=== PATIENT | male | born 1980 | race Caucasian/White ===

== ENCOUNTER 2016-08-03 21:10 | Inpatient (IN) | payer OTHER ==
[~2016-08-03] VITALS: Ht 182.9 cm; Wt 75.4 kg
[2016-08-04 00:10] VITALS: BP 138/81; PULSE 60; RESP 18; TEMP 96.8; O2SAT 99
[2016-08-04] MEDS ORDERED: MAGNESIUM HYDROXIDE SUSP 30 ML CUP PO PRN (01:00)
[2016-08-04] MEDS ORDERED: ALUMINUM/MAGNESIUM/SIMETH 30 ML CUP PO PRN (01:00)
[2016-08-04] MEDS ORDERED: ACETAMINOPHEN 325 MG TAB PO PRN (01:00)
[2016-08-04 06:26] VITALS: BP 103/57; PULSE 73; RESP 16; TEMP 97.6; O2SAT 95
--- NOTE | 2016-08-04 13:41 | HHI.HP ---
Provisional Diagnosis Admission Date Aug 03, 2016 at 21:10 [place] I. Adjustment disorder with mixed disturbance of emotions and conduct. Certification of Person's Competence To Provide Express and Informed Consent I have personally examined Noah Bragg , a person being served at [facility] on, Aug 04, 2016 13:28. Express and informed consent means consent voluntarily given in writing, by a competent person, after sufficient explanation and disclosure of the subject matter involved to enable the person to make a knowing and willful decision without any element of force, fraud, deceit, duress, or other form of constraint or coercion. This person is 18 years of age or older, is not now known to be incompetent to consent to treatment with a guardian advocate, and does not have a health care surrogate or proxy currently making medical treatment decisions. I have found this person to be one of the following: [x] Competent to provide express and informed consent, as defined above, for voluntary admission to this facility and is competent to provide express and informed consent for treatment. He/she has the consistent capacity to make well reasoned, willful, and knowing decisions concerning his or her medical or mental health treatment. The person fully and consistently understands the purpose of the admission for examination/placement and is fully capable of personally exercising all rights assured under [place] [] Incompetent to provide express and informed consent to voluntary admission, and this is incompetent to provide express and informed consent to treatment. The person must be transferred to involuntary status and a petition for a guardian advocate filed with the Circuit Court. [] Refusing to provide express and informed consent to voluntary admission but is competent to provide express and informed consent for treatment. The person must be discharged or transferred to involuntary status. Form shall be completed within 24 hours of a person's arrival at the receiving facility and filed in the clinical record of each person: 1. Admitted on a voluntary basis 2. Permitted to provide express and informed consent to his/her own treatment 3. Allowed to transfer from involuntary to voluntary status 4. Prior to permitting a person to consent to his or her own treatment after having been previously found incompetent to consent to treatment. History of Present Illness Capacity: Has Capacity HPI This is a 36-year-old male with a history of depression 3 weeks. Apparently 3 weeks ago he gave up custody of his 13-year-old and 10-year-old child to their mother, who lives in [place]. The 18-year-old child continues to live with the patient and his mother, in [facility]. Patient describes suicidal ideation and for that reason he was Choudhary acted. He reports symptoms of depressed mood, anhedonia, social withdrawal, irritability, diminished self- esteem, low energy, difficulty with motivation, wanting to sleep all the time, and suicidal thoughts. He is reportedly getting dialogue it off the street even though he states he obtained a prescription for that medicine in the recent past. Although he can pointof thick injury or reason for his pain, he believes he is dependent at this point. 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 Review of Systems ROS Limitations: Clinical Condition Except as stated in HPI: all other systems reviewed are Neg Past Psych History Psychological trauma history Denied Violence risk - others (6 mos) Minimal Violence risk - self (6 mos) Significant at this time. Substance Abuse History Drugs/Alcohol past 12 months Patient has been taking dialogue it which she buys off the street and uses up to 2 or 3 times per day. Past Family Social History Coded Allergies: No Known Allergies (Unverified , 08/04/16) Past Medical History No systemic diseases. Will be started on Cymbalta. Current Medications Medications (Trade) Dose Ordered Sig/Suzanna Route Start Time Stop Time Status Last Admin (Tylenol) 650 mg Q4H PRN PO 08/04/16 01:00 (Milk Of Magnesia Liq) 30 ml DAILY PRN PO 08/04/16 01:00 (Mag-Al Plus Susp Liq) 30 ml Q6H PRN PO 08/04/16 01:00 Family History Significant for mood disorders. Social History for several years. Lives with his mother and 18-year-old son in [place]. Performs concrete work intermittently. Currently abusing dialogue in it, which she receives off the street. He does not have a history of abuse. High school education. Patient's Strengths (min. 2) Verbal and resilient. Physical Exam GENERAL: SKIN: Warm and dry. HEAD: Normocephalic. EYES: No scleral icterus. No injection or drainage. NECK: Supple, trachea midline. No JVD or lymphadenopathy. CARDIOVASCULAR: Regular rate and rhythm without murmurs, gallops, or rubs. RESPIRATORY: Breath sounds equal bilaterally. No accessory muscle use. GASTROINTESTINAL: Abdomen soft, non-tender, nondistended. MUSCULOSKELETAL: No cyanosis, or edema. BACK: Nontender without obvious deformity. No CVA tenderness. Vital Signs Vital Signs Date Time Temp Pulse Resp B/P Pulse Ox O2 Delivery O2 Flow Rate FiO2 08/04/16 06:26 97.6 73 16 103/57 95 Mental Status Examination Speech: Unremarkable Orientation: x3 Memory: Unremarkable Thought Process: Organized, Goal Directed Thought Content: Unremarkable Hallucination Type: None Attention and Concentration: Good Suicidal Ideation: Yes Previous Suicide Attempts: No Homicidal Ideation: No Previous Homicide Attempts: No Insight: Fair Judgement: WNL, Unrealistic Affect: Anxious Affect if Inappropriate: Blunt Motor Activity: Normal gait Assessment & Plan Problem List: (1) Adjustment disorder with mixed disturbance of emotions and conduct ICD Code: F43.25 (2) Opiate abuse, continuous ICD Code: F11.10 Assessment & Plan Estimated LOS: days it is estimated the patient will be in the hospital for 3- 5 days. This physician is unable to help him with his withdrawal from dialogue but he will be monitored for significant symptoms of nausea, vomiting and diarrhea. If he begins to get dehydrated, helpless will be consult it. In the meantime he will be started on Cymbalta 20 mg per day for depression and reports of pain. He does not wish to take his past psychiatric medicines of Remeron, Seroquel and Lexapro, which she was prescribed several weeks ago in [place]. Apparently he was hospitalized several weeks ago in the [facility] with similar complaints. Request HC Surrog/Guard Advoc?: No Zay Craft MD Aug 04, 2016 13:41
[2016-08-04] MEDS ORDERED: hydrOXYzine HCL 50 MG TAB PO PRN (17:15)
[2016-08-04 19:44] VITALS: BP 120/71; PULSE 68; RESP 16; TEMP 98.1; O2SAT 100
[2016-08-05 05:53] VITALS: BP 117/63; PULSE 54; RESP 16; TEMP 98.1
[2016-08-05] MEDS: DULoxetine HCl DR 20 MG CAP PO SCH (09:50)
--- NOTE | 2016-08-05 10:29 | HHI.PYPN ---
Subjective Remarks Patient is complaining of severe depression this morning and withdrawal from alprazolam. He states he has been on alprazolam for 10 years. In an abundance of caution, this physician prescribed clonazepam 0.5 mg every 12 hours. However , due to the patient's abuse of dialogue and, this will not be provided on an outpatient basis. He is also being given Cymbalta for ongoing depressive complaints. He appears to be tolerating this medicine adequately well. Review of Systems Except as stated in HPI: all other systems reviewed are Neg Objective Alert: Yes [place]: Person, Place, Date, Situation Mood: Anxious Affect: Restricted Memory Intact: Immediate, Recent, Remote Hallucinations: Other Delusions: No Delusion Type: Other Suicidal: Ideation Homicidal: Ideation Insight/Judgement Impaired but adequate for the moment. Remarks Not actively homicidal Vitals/IOs Vital Signs Date Time Temp Pulse Resp B/P Pulse Ox O2 Delivery O2 Flow Rate FiO2 08/05/16 05:53 98.1 54 16 117/63 08/04/16 19:44 100 Assessment & Plan Problem List: (1) Adjustment disorder with mixed disturbance of emotions and conduct ICD Code: F43.25 (2) Opiate abuse, continuous ICD Code: F11.10 Assessment & Plan Estimated LOS: days patient was started on Cymbalta, low dose for depression and pain complaints as well as anxiety. This dose will be titrated upwards as long as he can tolerate the medicine. He was also started on Klonopin today to protect him from withdrawal from reported use of Xanax. He will continue to participate in individual and group therapies. It is anticipated he'll be in the hospital for one to 2 more days. Justification for Cont. Inpt. Continued suicidal threats. Request HC Surrog/Guard Advoc?: No Zay Craft MD Aug 05, 2016 10:28
[2016-08-05 21:17] VITALS: BP 115/59; PULSE 62; RESP 16; TEMP 97.9; O2SAT 99
[2016-08-05] MEDS: clonazePAM 0.5 MG TAB PO SCH (21:42)
[2016-08-06 05:48] VITALS: BP 112/63; PULSE 68; RESP 16; TEMP 97.4; O2SAT 97
[2016-08-06] MEDS: DULoxetine HCl DR 20 MG CAP PO SCH (08:37)
[2016-08-06] MEDS: clonazePAM 0.5 MG TAB PO SCH (08:37)
[2016-08-06] MEDS ORDERED: CLON.5 PO (11:56)
[2016-08-06] MEDS ORDERED: DULO20 PO (11:56)
--- NOTE | 2016-08-06 12:01 | HHI.DS ---
Psychiatry Discharge Summary Inpatient Psychiatric care?: Yes Advance Directive: Yes Mental Health AdvanceDirective: Yes (patient declined at this time) Name and Number: patient declined at this time Health Care Proxy: No (patient declined at this time) Name and Phone Number: patient declined at this time Admission Admission Date Aug 03, 2016 at 21:10 Admission Diagnosis: (1) Adjustment disorder with mixed disturbance of emotions and conduct ICD Code: F43.25 Brief History This is a 36-year-old male with a history of depression 3 weeks. Apparently 3 weeks ago he gave up custody of his 13-year-old and 10-year-old child to their mother, who lives in [place]. The 18-year-old child continues to live with the patient and his mother, in [facility]. Patient describes suicidal ideation and for that reason he was Choudhary acted. He reports symptoms of depressed mood, anhedonia, social withdrawal, irritability, diminished self- esteem, low energy, difficulty with motivation, wanting to sleep all the time, and suicidal thoughts. He is reportedly getting dialogue it off the street even though he states he obtained a prescription for that medicine in the recent past. Although he can pointof thick injury or reason for his pain, he believes he is dependent at this point. 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 Tobacco Use In Past 30 Days: 5 or More Cigarettes/Day Alcohol Use: Never Hospital Course The patient participated actively in individual as well as group therapies. He was started on Cymbalta for depression and clonazepam to prevent withdrawal from 10 years of taking Xanax. No major procedures were performed. At the time of discharge his mood was significantly improved and he was no longer suicidal but rather hopeful. He well follow up with his personal physician and was given a one-month supply of Cymbalta and clonazepam with no refills. Results Blood Pressure 112 / 63 Vital Signs Date Time Temp Pulse Resp B/P Pulse Ox O2 Delivery O2 Flow Rate FiO2 08/06/16 05:48 97.4 68 16 112/63 97 0 Summary of Procedures 0 Pending results at discharge: No Medications # of Antipsychotic meds at D/C: 0 Approp Antipsych med options 1 - Minimum of three failed multiple trials of monotherapy. 2 - Documented plan to taper to monotherapy due to previous use of multiple meds OR cross-taper in progress at D/C. 3 - Documentation of augmentation of Clozapine. 4 - Justification other than those listed in allowable values 1-3, document here : Discharge Discharge Date: Aug 06, 2016 Discharge Diagnosis: (1) Adjustment disorder with mixed disturbance of emotions and conduct ICD Code: F43.25 Mental Status Exam at Disch Patient's mental status exam is clear. No cognitive deficits. No suicidal or homicidal ideation. No psychotic symptoms. Insight and judgment are deemed adequate. Pt Condition on Discharge: Good Discharge Disposition: Discharge Home Discharge Instructions Diet Instructions: As Tolerated, No Restrictions Activities you can perform: Regular-No Restrictions Scheduled Appointment: [facility] Appointment Date: Aug 13, 2016 Appointment Time: 3:20pm Discharge Time <= 30 minutes Discharge/Advance Care Plan Health Problems: (1) Adjustment disorder with mixed disturbance of emotions and conduct (2) Opiate abuse, continuous Goals to promote your health * To prevent worsening of your condition and complications * To maintain your health at the optimal level Directions to meet your goals Take your medications as prescribed Follow your dietary instruction Follow activity as directed Keep your appointments as scheduled Take your immunizations and boosters as scheduled If your symptoms worsen call your PCP, if no PCP go to Urgent Care Center or Emergency Room For 29/12 questions related to your inpatient stay or results of tests pending at discharge, please contact Dr. Zay Craft at Smoking is Dangerous to Your Health. Avoid second hand smoking Zay Craft MD Aug 06, 2016 12:01
== END 2016-08-06 14:05 | disposition home or self-care (01) | DRG 882 ==
LOC: H260 21:10
PROVIDERS: ADMIT Psychiatry & Neurology Psychiatry; ATTEND Psychiatry & Neurology Psychiatry
DX: F43.25 Adjustment disorder with mixed disturbance of emotions and conduct (principal); R45.851 Suicidal ideations; F13.239 Sedative, hypnotic or anxiolytic dependence with withdrawal, unspecified; F11.10 Opioid abuse, uncomplicated; F41.9 Anxiety disorder, unspecified

== ENCOUNTER 2016-08-28 20:51 | Emergency (ER) | payer OTHER ==
[~2016-08-28 20:51] MED LIST: CLON.5 PO; DULO20 PO
[2016-08-28 21:14] VITALS: BP 124/72; PULSE 73; RESP 17; O2SAT 97
[2016-08-28] MEDS ORDERED: OLANZapine IM 10 MG VIAL IM ONE (21:15)
[2016-08-28] MEDS ORDERED: diphenhydrAMINE HCL 50 MG/ML VIAL IM PRN (21:15)
[2016-08-28 22:00] VITALS: BP 118/61; PULSE 76; RESP 18; TEMP 97.6; O2SAT 97
--- NOTE | 2016-08-28 22:05 | PD ---
HPI Chief Complaint: Psychiatric Symptoms Time Seen by Provider: 22:00 Travel History International Travel<30 days: No Contact w/Intl Traveler<30days: No History of Present Illness HPI 36-year-old male presents to the emergency department as a transfer from [facility] for psychiatric evaluation. According to the records, the patient presented for suicidal ideation and stated he injected a gram of cocaine as a suicide attempt. He also complained of chest pain. The patient was cleared by cardiology and was to follow-up out patient. He was transferred to [place] for psychiatric evaluation. The patient states that he still hears voices, but they are "good voices". He is not wanting to answer my questions and just wants to go to sleep for the night. He denies any medical complaints at this time. PFSH Past Medical History Autoimmune Disease: No Anxiety: Yes Depression: Yes Cancer: No Cardiovascular Problems: No Diabetes: No Endocrine: No Genitourinary: No Immune Disorder: No Musculoskeletal: Yes Neurologic: No Psychiatric: Yes (depression, suicide attempts) Reproductive: No Respiratory: No Thyroid Disease: No Past Surgical History AICD: No Arteriovenous Shunt: No Insulin Pump: No Joint Replacement: No Pacemaker: No Social History Alcohol Use: Yes Tobacco Use: Yes Substance Use: Yes (cocaine, 2 gms per week, marijuana, 2 gms per week, prior to admission) Allergies-Medications (Allergen,Severity, Reaction): Coded Allergies: No Known Allergies (Unverified , 08/04/16) Reported Meds & Prescriptions Reported Meds & Active Scripts Active Cymbalta DR (Duloxetine HCl) 20 Mg Capdr 20 Mg PO DAILY Klonopin (Clonazepam) 0.5 Mg Tab 0.5 Mg PO Q12HR Review of Systems Except as stated in HPI: all other systems reviewed are Neg (this is) Physical Exam Narrative GENERAL: Well-developed well-nourished male patient, in no acute distress. Afebrile. SKIN: Warm and dry. HEAD: Normocephalic. Atraumatic. EYES: No scleral icterus. No injection or drainage. NECK: Supple, trachea midline. No JVD or lymphadenopathy. CARDIOVASCULAR: Regular rate and rhythm without murmurs, gallops, or rubs. RESPIRATORY: Breath sounds equal bilaterally. No accessory muscle use. Lungs sounds are clear to auscultation. GASTROINTESTINAL: Abdomen soft, non-tender, nondistended. MUSCULOSKELETAL: No cyanosis, or edema. PSYCHIATRIC: No delusional thought processes. No obvious hallucinations. Data Data Last Documented VS Vital Signs Date Time Temp Pulse Resp B/P Pulse Ox O2 Delivery O2 Flow Rate FiO2 08/28/16 22:06 98.7 08/28/16 21:14 73 17 124/72 97 Room Air Orders Olanzapine Inj (Zyprexa Inj) (08/28/16 21:15) Diphenhydramine Inj (Benadryl Inj) (08/28/16 21:15) MDM Medical Decision Making Medical Screen Exam Complete: Yes Emergency Medical Condition: Yes Medical Record Reviewed: Yes Differential Diagnosis Depression versus anxiety versus substance abuse versus schizophrenia versus bipolar Narrative Course 36-year-old male presents to the emergency department under Choudhary act and a transfer from [facility]. I reviewed the labs done of the previous hospital. No acute abnormalities are seen. The patient denies any medical complaints at this time. Patient is medically cleared for psychiatric screening and disposition. Mental health screening discussed with the patient. Psychiatric screen ordered. Diagnosis Primary Impression: Opiate abuse, continuous Additional Impression: Depression Qualified Code: F32.9 - Depression, unspecified depression type Additional Instructions: Patient is medically cleared for psychiatric screening and disposition. Condition: Stable Bridgett Chaudhry Aug 28, 2016 22:05
[2016-08-28 22:06] VITALS: TEMP 98.7
[2016-08-28 22:23] VITALS: BP 132/87; PULSE 60; RESP 16; O2SAT 100
[2016-08-29] MEDS ORDERED: HYDR-3133 PO (01:53)
[2016-08-29] MEDS ORDERED: LAMO25TA PO (01:53)
[2016-08-29] MEDS ORDERED: MIRT1TAB PO (01:53)
[2016-08-29] MEDS ORDERED: NITR2.5C PO (01:55)
[2016-08-29] MEDS ORDERED: SERO100T PO (01:55)
[2016-08-29 02:13] VITALS: BP 122/58; PULSE 53; RESP 18; O2SAT 98
[2016-08-29 06:31] VITALS: BP 107/64; PULSE 60; RESP 18; O2SAT 97
[2016-08-29 12:00] VITALS: BP 123/78; PULSE 89; RESP 18; TEMP 97.9; O2SAT 99
== END 2016-08-29 13:00 | disposition home or self-care (01) ==
LOC: NEPJ 20:51
DX: F11.10 Opioid abuse, uncomplicated (principal); F32.9 Major depressive disorder, single episode, unspecified
CPT/HCPCS: 96372; 99284; J1200

== ENCOUNTER 2016-10-14 13:56 | Inpatient (IN) | payer OTHER ==
[~2016-10-14 13:56] MED LIST changes: -CLON.5 PO; -DULO20 PO; +HYDR-3133 PO; +LAMO25TA PO; +MIRT1TAB PO; +NITR2.5C PO; +SERO100T PO
[2016-10-14 14:17] VITALS: BP 114/69; PULSE 61; RESP 18; TEMP 98.2; O2SAT 97
[2016-10-14] MEDS ORDERED: LORazepam 0.5 MG TAB PO PRN (15:00)
[2016-10-14] MEDS ORDERED: LORazepam 2 MG/ML VIAL IM PRN ×2 (15:00)
[2016-10-14] MEDS ORDERED: ACETAMINOPHEN 325 MG TAB PO PRN (15:00)
[2016-10-14] MEDS ORDERED: LORazepam 1 MG TAB PO PRN (15:00)
[2016-10-14] MEDS ORDERED: ALUMINUM/MAGNESIUM/SIMETH 30 ML CUP PO PRN (15:00)
[2016-10-14] MEDS: NICOTINE 21 MG/24 HR PATCH T-DERMAL SCH (15:00)
[2016-10-14] MEDS ORDERED: MAGNESIUM HYDROXIDE SUSP 30 ML CUP PO PRN (15:00)
[2016-10-14 18:10] VITALS: BP 106/50; PULSE 54; RESP 18; TEMP 98.9; O2SAT 95
[2016-10-14] MEDS ORDERED: REMOVE OLD NICODERM (NICOTINE) PATCH T-DERMAL SCH (21:00)
[2016-10-15 06:06] VITALS: BP 91/52; PULSE 56; RESP 16; TEMP 97.8
[2016-10-15 08:02] LABS: ANION GAP 9 MEQ/L (5-15); BICARBONATE 24.8 MEQ/L (21.0-32.0); BLOOD UREA NITROGEN 10 MG/DL (7-18); CHLORIDE 106 MEQ/L (98-107); GLOMERULAR FILTRATION RATE 115 ML/MIN (>89); HDL CHOLESTEROL 49.6 MG/DL (40.0-60.0); LDL CHOLESTEROL 106 MG/DL (0-99); POTASSIUM 3.7 MEQ/L (3.5-5.1); SODIUM (NA) 140 MEQ/L (136-145)
[2016-10-15] MEDS: NICOTINE 21 MG/24 HR PATCH T-DERMAL SCH (09:37)
[2016-10-15 12:28] LABS: HEMOGLOBIN A1b 1.5 %; HEMOGLOBIN LA1C 1.8 %; HEMOGLOBIN P3 3.2 %
--- NOTE | 2016-10-15 14:23 | HHI.HP ---
Provisional Diagnosis Admission Date October 14, 2016 at 13:56 [place] I. Adjustment disorder Certification of Person's Competence To Provide Express and Informed Consent I have personally examined Noah Bragg , a person being served at [facility] on, October 15, 2016 14:21. Express and informed consent means consent voluntarily given in writing, by a competent person, after sufficient explanation and disclosure of the subject matter involved to enable the person to make a knowing and willful decision without any element of force, fraud, deceit, duress, or other form of constraint or coercion. This person is 18 years of age or older, is not now known to be incompetent to consent to treatment with a guardian advocate, and does not have a health care surrogate or proxy currently making medical treatment decisions. I have found this person to be one of the following: [X] Competent to provide express and informed consent, as defined above, for voluntary admission to this facility and is competent to provide express and informed consent for treatment. He/she has the consistent capacity to make well reasoned, willful, and knowing decisions concerning his or her medical or mental health treatment. The person fully and consistently understands the purpose of the admission for examination/placement and is fully capable of personally exercising all rights assured under [place] [] Incompetent to provide express and informed consent to voluntary admission, and this is incompetent to provide express and informed consent to treatment. The person must be transferred to involuntary status and a petition for a guardian advocate filed with the Circuit Court. [] Refusing to provide express and informed consent to voluntary admission but is competent to provide express and informed consent for treatment. The person must be discharged or transferred to involuntary status. Form shall be completed within 24 hours of a person's arrival at the receiving facility and filed in the clinical record of each person: 1. Admitted on a voluntary basis 2. Permitted to provide express and informed consent to his/her own treatment 3. Allowed to transfer from involuntary to voluntary status 4. Prior to permitting a person to consent to his or her own treatment after having been previously found incompetent to consent to treatment. History of Present Illness Capacity: Has Capacity HPI Patient not suicidal or homicidal. States he had a panic attack because he ran out of medication. Now has money to buy medicine and doesn't want to be here. Review of Systems Except as stated in HPI: all other systems reviewed are Neg Past Psych History Psychological trauma history None Violence risk - others (6 mos) Minimal Violence risk - self (6 mos) Minimal Substance Abuse History Drugs/Alcohol past 12 months Denied Past Family Social History Coded Allergies: No Known Allergies (Unverified , 08/04/16) Reported Medications Quetiapine (Seroquel)100 Mg Aqc204 Mg PO HS #30 TAB Ref 0 08/29/16 Nitroglycerin ER 12 HR 2.5 Mg Caper PO BID Ref 0 08/29/16 Mirtazapine 7.5 Mg Tab22.5 Mg PO HS #30 TAB Ref 0 08/29/16 Lamotrigine 25 Mg Tab50 Mg PO BID #60 TAB Ref 0 08/29/16 Hydroxyzine HCl 25 Mg Tab25 Mg PO QID PRN (ANXIETY) Ref 0 08/29/16 Current Medications Medications (Trade) Dose Ordered Sig/Suzanna Route Start Time Stop Time Status Last Admin (Ativan) 1 mg Q6H PRN PO 10/14/16 15:00 (Ativan Inj) 1 mg Q6H PRN IM 10/14/16 15:00 (Tylenol) 650 mg Q4H PRN PO 10/14/16 15:00 (Milk Of Magnesia Liq) 30 ml DAILY PRN PO 10/14/16 15:00 (Mag-Al Plus Susp Liq) 30 ml Q6H PRN PO 10/14/16 15:00 (Habitrol 21 Mg Patch.24 Hr) 1 patch DAILY T-DERMAL 10/14/16 15:00 10/15/16 09:37 Miscellaneous Information 1 HS T-DERMAL 10/14/16 21:00 10/14/16 21:00 Family History Did not Social History Works. Lives with mother. Patient's Strengths (min. 2) Resilient and has access to healthcare. Physical Exam GENERAL: SKIN: Warm and dry. HEAD: Normocephalic. EYES: No scleral icterus. No injection or drainage. NECK: Supple, trachea midline. No JVD or lymphadenopathy. CARDIOVASCULAR: Regular rate and rhythm without murmurs, gallops, or rubs. RESPIRATORY: Breath sounds equal bilaterally. No accessory muscle use. GASTROINTESTINAL: Abdomen soft, non-tender, nondistended. MUSCULOSKELETAL: No cyanosis, or edema. BACK: Nontender without obvious deformity. No CVA tenderness. Vital Signs Vital Signs Date Time Temp Pulse Resp B/P Pulse Ox O2 Delivery O2 Flow Rate FiO2 10/15/16 06:06 97.8 56 16 91/52 10/14/16 18:10 95 Mental Status Examination Speech: Unremarkable Orientation: x3 Memory: Unremarkable Thought Process: Organized, Goal Directed Thought Content: Unremarkable Hallucination Type: None Attention and Concentration: Good Suicidal Ideation: No Previous Suicide Attempts: No Homicidal Ideation: No Previous Homicide Attempts: No Insight: Fair Judgment: WNL Affect: Good Mood: Appropriate Motor Activity: Normal gait Assessment & Plan Problem List: (1) Adjustment disorder with mixed disturbance of emotions and conduct ICD Code: F43.25 Assessment & Plan Estimated LOS: 1 days patient doesn't need inpatient hospitalization. Zay Craft MD October 15, 2016 14:23
== END 2016-10-15 16:00 | disposition home or self-care (01) | DRG 882 ==
LOC: H260 13:56
PROVIDERS: ADMIT Psychiatry & Neurology Psychiatry; ATTEND Psychiatry & Neurology Psychiatry
DX: F43.25 Adjustment disorder with mixed disturbance of emotions and conduct (principal)
CPT/HCPCS: 80048; 80061; 83036

== ENCOUNTER 2016-10-20 22:59 | Emergency (ER) | payer SELFPAY ==
[2016-10-20 23:32] VITALS: BP 120/63; PULSE 59; RESP 19; TEMP 98.7; O2SAT 98
--- NOTE | 2016-10-21 01:41 | PD ---
HPI Chief Complaint: Psychiatric Symptoms Time Seen by Provider: 01:20 Travel History International Travel<30 days: No Contact w/Intl Traveler<30days: No Traveled to known affect area: No History of Present Illness HPI 36-year-old white male presents to emergency department as a transfer from [facility]. The patient was medically cleared there and was accepted by the psychiatrist today. The patient has a history of IV heroin use. His significant other just from a drug overdose 2 days ago. The patient states that he has contemplated suicide but he does not want to carry this out therefore is seeking evaluation and treatment of his depression. The patient denies any acute medical complaints. He denies any toxic ingestions. No homicidal ideation. PFSH Past Medical History Autoimmune Disease: No Bipolar Disorder: Yes Anxiety: Yes Depression: Yes Heart Rhythm Problems: Yes Cancer: No Cardiovascular Problems: No Diabetes: No Diminished Hearing: No Endocrine: No Gastrointestinal Disorders: No Genitourinary: No Hepatitis: Yes (C) Immune Disorder: No Implanted Vascular Access Dvce: No Musculoskeletal: Yes Neurologic: No Psychiatric: Yes Reproductive: No Respiratory: No Schizophrenia: Yes (PER PATIENT) Seizures: No Thyroid Disease: No Past Surgical History AICD: No Arteriovenous Shunt: No Insulin Pump: No Joint Replacement: No Pacemaker: No Social History Alcohol Use: Yes Tobacco Use: Yes Substance Use: Yes (cocaine, 2 gms per week, marijuana, 2 gms per week, prior to admission) Allergies-Medications (Allergen,Severity, Reaction): Coded Allergies: No Known Allergies (Unverified , 10/21/16) Reported Meds & Prescriptions Reported Meds & Active Scripts Active Reported Seroquel (Quetiapine Fumarate) 100 Mg Tab 100 Mg PO HS Nitroglycerin ER 12 HR (Nitroglycerin) 2.5 Mg Caper 0 PO BID Mirtazapine 7.5 Mg Tab 22.5 Mg PO HS Lamotrigine 25 Mg Tab 50 Mg PO BID Hydroxyzine HCl 25 Mg Tab 25 Mg PO QID PRN Review of Systems Except as stated in HPI: all other systems reviewed are Neg General / Constitutional: No: Fever, Chills Eyes: No: Blurred Vision, Photophobia HENT: No: Headaches, Lightheadedness Cardiovascular: No: Chest Pain or Discomfort Respiratory: Positive: Wheezing, No: Cough, Shortness of Breath Gastrointestinal: No: Nausea, Vomiting Genitourinary: No: Frequency, Dysuria Musculoskeletal: No: Arthralgias, Pain Skin: Positive Other (no skin infections), No Rash, No Itching Neurologic: No: Headache, Paresthesia Psychiatric: Positive: Depression, Suicidal Ideations, Substance Abuse, No: Anxiety Physical Exam Narrative GENERAL: Well-nourished, well-developed patient. SKIN: Warm and dry. HEAD: Normocephalic and atraumatic. EYES: No scleral icterus. No injection or drainage. ENT: No nasal drainage noted. Mucous membranes pink. Airway patent. NECK: Supple, trachea midline. Moves head freely without obvious discomfort. CARDIOVASCULAR: Regular rate and rhythm without murmurs, gallops, or rubs. RESPIRATORY: Breath sounds equal bilaterally. No accessory muscle use. GASTROINTESTINAL: Abdomen soft, non-tender, nondistended. EXTREMITIES: No cyanosis or edema. BACK: Nontender without obvious deformity. No CVA tenderness. NEURO: Patient is alert and oriented. no sensorimotor deficits. Nonfocal. Normal speech. PSYCH: No delusions. No auditory or visual hallucinations. Data Data Last Documented VS Vital Signs Date Time Temp Pulse Resp B/P Pulse Ox O2 Delivery O2 Flow Rate FiO2 10/20/16 23:32 98.7 59 19 120/63 98 Room Air MDM Medical Decision Making Medical Screen Exam Complete: Yes Emergency Medical Condition: Yes Medical Record Reviewed: Yes Differential Diagnosis MDM: High Differential diagnoses: Schizophrenia, schizoaffective disorder, bipolar, anxiety, depression, adjustment reaction, mood disorder NOS, ODD, depressive disorder NOS, dementia, dementia with agitation, psychosis NOS, substance induced mood disorder, intermittent explosive disorder, Asperger syndrome, infection,electrolyte abnormality, malingering. Narrative Course Mental health screening discussed with the patient. Psychiatric screen ordered. The patient's been medically cleared at [facility]. I reviewed the laboratory testing. This is adjustment reaction with depressed mood, substance abuse Diagnosis Primary Impression: Reaction, adjustment, with depressed mood, brief Additional Impression: Substance abuse Condition: Stable Oskar Plummer October 21, 2016 01:41
[2016-10-21 02:20] VITALS: BP 100/54; PULSE 52; RESP 16; O2SAT 99
[2016-10-21 06:00] VITALS: BP 120/56; PULSE 55; RESP 18; O2SAT 99
[2016-10-21 10:23] VITALS: BP 104/57; PULSE 59; RESP 16; TEMP 97.9; O2SAT 98
[2016-10-21 11:46] VITALS: BP 104/57; PULSE 59; RESP 18; TEMP 97.9; O2SAT 98
[2016-10-21 11:50] VITALS: BP 104/57; TEMP 97.8
--- NOTE | 2016-10-21 14:09 | PD ---
History of Present Illness Chief Complaint: Psychiatric Symptoms Time Seen by Provider: 10:30 Travel History International Travel<30 Days: No Contact w/Intl Traveler<30days: No Known affected area: No Legal Status Legal Status: Choudhary Act Choudhary Act Signed By: Dayanna Choudhary Act Comment: Suicidal Ideations with Depression History of Present Illness: Patient known to this position. He was discharged by this physician approximately one week ago. Patient is not truthful and continues to use opiates, including heroin. However, patient wants to go to [facility] and may receive treatment there. PFSH Past Medical History Autoimmune Disease: No Bipolar Disorder: Yes Anxiety: Yes Depression: Yes Heart Rhythm Problems: Yes Cancer: No Cardiovascular Problems: No Diabetes: No Diminished Hearing: No Endocrine: No Gastrointestinal Disorders: No Genitourinary: No Hepatitis: Yes (C) Immune Disorder: No Implanted Vascular Access Dvce: No Musculoskeletal: Yes Neurologic: No Psychiatric: Yes Reproductive: No Respiratory: No Schizophrenia: Yes (PER PATIENT) Seizures: No Thyroid Disease: No Past Surgical History AICD: No Arteriovenous Shunt: No Insulin Pump: No Joint Replacement: No Pacemaker: No Psychiatric History Psychiatric History Hx Psychiatric Treatment: Depression, substance abuse, suicidal ideations History of Inpatient Treatment: Yes Social History Hx Alcohol Use: Yes Hx Tobacco Use: Yes Hx Substance Use: Yes (cocaine, 2 gms per week, marijuana, 2 gms per week, prior to admission) Substance Use Type: Alcohol, Heroin, Synth Opiates-Pain Pills Other Substances Used: Pt. has a long history of substance abuse Hx of Substance Use Treatment: Yes Allergies-Medications (Allergen,Severity, Reaction): Coded Allergies: No Known Allergies (Unverified , 10/21/16) Reported Meds & Prescriptions Reported Meds & Active Scripts Active Reported Seroquel (Quetiapine Fumarate) 100 Mg Tab 100 Mg PO HS Nitroglycerin ER 12 HR (Nitroglycerin) 2.5 Mg Caper 0 PO BID Mirtazapine 7.5 Mg Tab 22.5 Mg PO HS Lamotrigine 25 Mg Tab 50 Mg PO BID Hydroxyzine HCl 25 Mg Tab 25 Mg PO QID PRN Review of Systems Except as stated in HPI: all other systems reviewed are Neg Exam Alert: Yes Raymond: Person, Place, Date, Situation Mood: Calm Affect: Restricted Speech: Clear, Logical Eye Contact: Normal Memory Intact: Immediate, Recent, Remote Insight/Judgement Adequate [facility] Medical Decision Making Medical Record Reviewed: Yes Assessment/Plan Patient wants to receive treatment at [facility] and this physician did not lift [facility] as his priority there is higher for admission under the [facility]. Orders Diet Regular Basic (10/21/16 Breakfast) Psych Screen (10/21/16 08:07) Results Vital Signs Date Time Temp Pulse Resp B/P Pulse Ox O2 Delivery O2 Flow Rate FiO2 10/21/16 11:50 97.8 59 18 104/57 98 10/21/16 11:46 97.9 59 18 104/57 98 10/21/16 10:23 97.9 59 16 104/57 98 10/21/16 06:00 55 18 120/56 99 Room Air 10/21/16 02:20 52 16 100/54 99 Room Air 10/20/16 23:32 98.7 59 19 120/63 98 Room Air Diagnosis Primary Impression: Reaction, adjustment, with depressed mood, brief Additional Impression: Substance abuse Referrals: NO PRIMARY CARE PHYSICIAN (PCP) Departure Forms: Tests/Procedures Patient Instructions: General Instructions, Depression (ED), Medical Clearance for Psychiatric Care (ED) Additional Instructions: Discharged to [facility] Dx. Substance abuse, Depression with SI Follow instructions per discharge of [facility] Return to ED for further problems Disposition: 65 DISC TO PSYCH CARE FACILITY Condition: Stable Problem Qualifiers Zay Craft MD October 21, 2016 14:09
== END 2016-10-21 11:30 ==
LOC: NEPJ 22:59
DX: F43.21 Adjustment disorder with depressed mood (principal); F14.10 Cocaine abuse, uncomplicated; F12.10 Cannabis abuse, uncomplicated; Z72.0 Tobacco use; F31.9 Bipolar disorder, unspecified; F41.8 Other specified anxiety disorders; B19.20 Unspecified viral hepatitis C without hepatic coma
CPT/HCPCS: 99285

== ENCOUNTER 2016-12-11 16:15 | Emergency (ER) | payer SELFPAY ==
[~2016-12-11] VITALS: Ht 172.7 cm; Wt 85.0 kg
[2016-12-11 17:22] VITALS: BP 132/79; PULSE 84; RESP 18; TEMP 98.6; O2SAT 78; O2SAT 98
--- NOTE | 2016-12-11 18:03 | PD ---
HPI Chief Complaint: Psychiatric Symptoms Time Seen by Provider: 18:02 Travel History International Travel<30 days: No Contact w/Intl Traveler<30days: No Traveled to known affect area: No History of Present Illness HPI 36-year-old male with history of depression, presents to emergency department as a transfer from [facility] for psychiatric evaluation. Patient injected an unknown substance that he found under his sink 3 times yesterday and attempt to commit suicide. He was taken to [facility], evaluated, medically cleared today and transferred here. Patient denies any acute medical needs at this time. Reports he has been increasingly depressed and actively attempted to take his life yesterday. PFSH Past Medical History Autoimmune Disease: No Bipolar Disorder: Yes Anxiety: Yes Depression: Yes Heart Rhythm Problems: Yes Cancer: No Cardiovascular Problems: No Diabetes: No Diminished Hearing: No Endocrine: No Gastrointestinal Disorders: No Genitourinary: No Hepatitis: Yes (C) Immune Disorder: No Implanted Vascular Access Dvce: No Musculoskeletal: Yes Neurologic: No Psychiatric: Yes Reproductive: No Respiratory: No Schizophrenia: Yes (PER PATIENT) Seizures: No Thyroid Disease: No Past Surgical History AICD: No Arteriovenous Shunt: No Insulin Pump: No Joint Replacement: No Pacemaker: No Social History Alcohol Use: Yes Tobacco Use: Yes Substance Use: Yes Allergies-Medications (Allergen,Severity, Reaction): Coded Allergies: No Known Allergies (Unverified , 12/11/16) Reported Meds & Prescriptions Reported Meds & Active Scripts Active No Active Prescriptions or Reported Medications Review of Systems Except as stated in HPI: all other systems reviewed are Neg Physical Exam Narrative GENERAL: Well-nourished, well-developed male patient in no acute distress SKIN: Focused skin assessment warm/dry. HEAD: Normocephalic. EYES: No scleral icterus. No injection or drainage. NECK: Supple, trachea midline. No JVD or lymphadenopathy. CARDIOVASCULAR: Regular rate and rhythm without murmurs, gallops, or rubs. RESPIRATORY: Breath sounds equal bilaterally. No accessory muscle use. GASTROINTESTINAL: Abdomen soft, non-tender, nondistended. MUSCULOSKELETAL: No cyanosis, or edema. BACK: Nontender without obvious deformity. No CVA tenderness. Data Data Last Documented VS Vital Signs Date Time Temp Pulse Resp B/P Pulse Ox O2 Delivery O2 Flow Rate FiO2 12/11/16 22:14 69 18 104/53 97 Room Air 12/11/16 17:22 98.6 Orders Psych Screen (12/11/16 16:50) Diet Regular Basic (12/11/16 Dinner) MDM Medical Decision Making Medical Screen Exam Complete: Yes Emergency Medical Condition: Yes Medical Record Reviewed: Yes Differential Diagnosis Mood disorder versus personality disorder versus adjustment reaction disorder Narrative Course 36-year-old male presents to the emergency department as a transfer for psychiatric evaluation. Patient has been medically cleared prior to arrival. Lab work is reviewed without any acute concern. It will not be repeated at this time. Patient remains medically cleared for psychiatric evaluation. Diagnosis Primary Impression: Reaction, adjustment, with depressed mood, brief Additional Impression: Substance abuse Scripts No Active Prescriptions or Reported Meds Condition: Stable Mahogany Jj Dec 11, 2016 18:02
[2016-12-11 22:14] VITALS: BP 104/53; PULSE 69; RESP 18; O2SAT 97
[2016-12-12 02:36] VITALS: BP 109/65; PULSE 63; RESP 16; O2SAT 98
[2016-12-12 06:00] VITALS: BP 114/68; PULSE 59; RESP 16; O2SAT 99
--- NOTE | 2016-12-12 09:57 | MB ---
cc: ROBIN ROBLES DATE OF CONSULTATION 12/12/2016 PHYSICIAN REQUESTING CONSULTATION Emergency Department. REASON FOR CONSULTATION Choudhary Act. HISTORY OF PRESENT ILLNESS Mr. Bragg is a 36-year-old male with a reported history of depression and a chart history of adjustment disorder and substance use issues. He presents under Choudhary Act from [place] [employer] alleging that the patient told officers that he was tired of living and ingested something from under his sink. Reviewing the electronic medical record, I note that the patient was seen most recently in consultation by Dr. Craft on October 21 for suicidal ideation. The patient was seen and examined, chart reviewed, case discussed with nurse in the [facility]. The patient has been no behavioral problem in the [facility] and there has been no evidence of any suicidality or homicidality while he was under observation here. On my examination this morning, the patient is in good spirits. He is clinically sober. He presently denies any suicidal or homicidal ideation, intent or plan on direct questioning and contracts for safety. He has a vague recollection of the circumstances of his presentation as documented by law enforcement, although he does note that he was intoxicated with substances at the time. He says that he routinely abuses Dilaudid as well as cannabis. He says that he thinks he might have been hallucinating when he made the ingestion and that this was the driving force for his ingestion. He denies any suicidal ideation now as I said and explains that he wants to live for his children. He denies any issues with low mood or elevated mood, nor can I elicit any depressive or hypomanic/manic symptoms at this time. He denies any audiovisual hallucinations and I can elicit no delusional beliefs. The remainder of the psychiatric ROS is negative. The patient is requesting discharge from the psychiatric emergency room this morning. PAST PSYCHIATRIC HISTORY The patient reports a history of depression. He is not currently under the care of a psychiatrist but is willing to follow up on an outpatient basis. He says that he was admitted most recently a few months ago for management of depression, and I do see that he was briefly admitted here in early October under Dr. Craft for a single day. The patient endorses history of suicidal gestures in the past but emphasizes that these were primarily "attention seeking." FAMILY HISTORY The patient denies family history of serious mental illness or suicide. CHEMICAL DEPENDENCY HISTORY The patient reports that he uses 3 x 8 mg daily of Dilaudid. He has attended a rehabilitation program and [place] within the last year and says that he was able to maintain 9 months of sobriety after that program. He also endorses cannabis use but says that he does not use this substance daily. SOCIAL HISTORY The patient reports that he lives with his girlfriend. He has three children who live with their mother in [place]. He is high school educated. He is not presently working. He denies any history. Denies any active legal issues. He does endorse a history of drug crime. He denies a history of violent crime. He denies any access to guns or firearms. When asked about his yazidi beliefs. He says, "I am a realist." PAST MEDICAL HISTORY The patient denies any significant medical history. REVIEW OF SYSTEMS No reported headache, vision or hearing changes, chest pain, shortness of breath, bowel or bladder issues. The patient denies any symptoms of withdrawal. No other physical complaints. PHYSICAL EXAMINATION VITAL SIGNS: Temperature is 97.8, pulse 56, respirations 16, blood pressure 191/52, pulse oximetry 95% on room air. A physical examination was completed by the ED provider. On my examination today, the patient appears to be well-nourished and well-developed, in no acute physical distress. No motor abnormalities noted. No signs of intoxication or withdrawal noted. LABORATORY Reviewed. Laboratories from outside hospital reviewed: CBC is unremarkable. CMP is fairly unremarkable. Urine toxicology was positive only for cannabinoids. MENTAL STATUS EXAMINATION The patient is in hospital gown. He is well-groomed. He appears to be attending to his basic needs. He is awake, alert and oriented x 3. No evidence of delirium. No motor abnormalities noted. Speech is within normal limits for rate, tone and volume. Language and fund of knowledge seem average. Focus and concentration intact. Memory grossly intact on clinical exam. Mood is fair and affect is full and reactive. Thought process linear. No loosening of associations. No evident delusional material. Denies audiovisual hallucinations. Denies suicidal or homicidal ideation, intent or plan. Contracts for safety. Insight and judgment are fair. ASSESSMENT AND PLAN 1. 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 2. Polysubstance abuse. F19.10. This is a 36-year-old male with psychiatric history as detailed above who presents in transfer from outside hospital under a Choudhary Act. On my examination this morning, the patient is clinically sober. He denies any suicidal or homicidal ideation, intent or plan on direct questioning. I can detect no unstable mood, anxiety or psychotic disorder in this patient at this time. He appears to be attending to his basic needs. He does have substance use issues. Synthesizing the above information and weighing the acute, chronic, and protective factors, I concrete bucket unloader to a reasonable degree of medical certainty that the patient does not at present meet the Choudhary Act criteria. I have lifted the Choudhary Act. The patient is requesting discharge from the ED this morning and, given that he does not meet criteria for involuntary psychiatric hospitalization, I must recommend his discharge from the ED. I have counseled the patient to pursue chemical dependency evaluation and treatment on an outpatient basis and the nurse will provide the appropriate referrals. I have counseled the patient to abstain from substances of abuse. I have counseled the patient regarding warning signs for need to return to the psychiatric emergency room as part of a general safety plan. The patient is otherwise psychiatrically cleared for discharge from the ED. Thank you very much for this consultation. Robin Robles DC/SAIMA /9:03 AM /9:51 AM JASON
== END 2016-12-12 08:54 | disposition home or self-care (01) ==
LOC: NEPJ 16:15
DX: F43.25 Adjustment disorder with mixed disturbance of emotions and conduct (principal); F19.10 Other psychoactive substance abuse, uncomplicated
CPT/HCPCS: 99284